=== PATIENT | male | born 1945 | race Caucasian/White ===

== ENCOUNTER → 2016-06-27 | Outpatient (CLI) | payer MEDICARE, BC ==
[~2016-06-27] MED LIST: /WARF25TA PO; AMLO5TAB2 PO; ASPI81TA85 PO; ATEN50TA2 PO; ATOR1TAB21 PO; LYRI75CA PO; PERCOCET PO; TYLE325T5 PO; VALS160T PO
--- NOTE | 2016-06-27 15:06 | REP ---
MRI LUMBAR SPINE WITHOUT CONTRAST: HISTORY: Back and right leg pain. Decreased signal intensity on T2-weighted images is present in the lumbar intervertebral discs. The discs are decreased in height. These findings are consistent with disc degeneration. A diffuse disc bulge is present at the L1-2 level. There is minimal compression of the thecal sac. There is hypertrophy of the posterior articulating facets. The L1 nerves exit the neural foramina without compression. A diffuse disc bulge is present at the L2-3 level. There is hypertrophy of the ligamenta flava and posterior articulating facets. These findings produce minimal central canal stenosis. There is compression of the right L2 nerve in the neural foramen. The left L2 nerve exits the neural foramen without compression. A diffuse disc bulge is present at the L3-4 level. There is hypertrophy of the ligamenta flava and the posterior articulating facets. These findings produce minimal central canal stenosis. There is compression of the right L3 nerve in the neural foramen. The left L3 nerve exits the neural foramen without compression. A diffuse disc bulge is present at the L4-5 level. There is hypertrophy of the ligamenta flava and posterior articulating facets. A 2 mm synovial cyst is present posterior and medial to the left L4-5 facet. These findings produce severe central canal stenosis. There is compression of the L4 nerves in the neural foramina. A diffuse disc bulge is present at the L5-S1 level. There is no thecal sac compression. There is hypertrophy of the posterior articulating facets. There is compression of the left L5 nerve in the neural foramen. The right L5 nerve exits the neural foramen without compression. The conus medullaris is normal in appearance terminating at the level of the L1-2 intervertebral disc. Normal signal intensity is present in the lumbar vertebral bodies. IMPRESSION: 1. Diffuse disc bulge at the L1-2 level with minimal thecal sac compression. 2. Minimal central canal stenosis at the L2-3 and L3-4 levels secondary to disc bulge, ligamentous and facet hypertrophy. There is compression of the right L2 and L3 nerves in the neural foramina. 3. Severe central canal stenosis at the L4-5 level secondary to disc bulge, ligamentous and facet hypertrophy and a left synovial cyst. There is compression of the L4 nerves in the neural foramina. 4. Diffuse disc bulge at the L5-S1 level without thecal sac compression. There is compression of the left L5 nerve in the neural foramen. Signed by Dipak Reina MD 06/27/2016 03:29 P
== END ==
LOC: M RAD 12:42
PROVIDERS: ATTEND Orthopaedic Surgery
DX: M47.896 Other spondylosis, lumbar region (principal)

== ENCOUNTER 2016-12-24 06:26 | Outpatient (CLI) | payer MEDICARE, BC ==
[~2016-12-24] VITALS: Ht 177.8 cm; Wt 117.9 kg
[~2016-12-24 06:26] MED LIST changes: +INDA125TA PO; +VALS1TAB48 PO; +ZYRT10TA2 PO
[2016-12-24] MEDS ORDERED: NS 1,000 ML IV SCH (07:00)
[2016-12-24] MEDS ORDERED: LIDOCAINE 2% INJ 100 MG/5 ML SDV (FOR ANES.) As Ordered ONE (07:56)
[2016-12-24] MEDS ORDERED: PROPOFOL 200 MG/20 ML VIAL As Ordered ONE (07:56)
--- NOTE | 2016-12-24 08:07 | ROOR ---
Patient Name: Pancho Lindo Procedure Date: 12/24/2016 7:38 AM Date of : 1945 Age: 71 Room: [facility] Gender: Male Note Status: Finalized Procedure: Total Colonoscopy to Cecum Indications: Screening for colorectal malignant neoplasm Providers: Jose Juarez MD Referring MD: GABRIEL UMANA JR, MD Requesting Provider: Medicines: Monitored Anesthesia Care Complications: No immediate complications. Procedure: Pre-Anesthesia Assessment: - The heart rate, respiratory rate, oxygen saturations, blood pressure, adequacy of pulmonary ventilation, and response to care were monitored throughout the procedure. The Colonoscope was introduced through the anus and advanced to the cecum, identified by appendiceal orifice and ileocecal valve. The colonoscopy was performed without difficulty. The patient tolerated the procedure well. The quality of the bowel preparation was excellent. Findings: The perianal and digital rectal examinations were normal. Non-bleeding internal hemorrhoids were found during retroflexion. The hemorrhoids were small and Grade I (internal hemorrhoids that do not prolapse). No other significant abnormalities were identified in a careful examination of the remainder of the colon. The exam was otherwise without abnormality on direct and retroflexion views. Scattered small-mouthed diverticula were found in the recto-sigmoid colon and sigmoid colon. Impression: - Non-bleeding internal hemorrhoids. - The examination was otherwise normal on direct and retroflexion views. - Diverticulosis in the recto-sigmoid colon and in the sigmoid colon. - No specimens collected. - The exam was otherwise normal to the cecum. Recommendation: - Patient has a contact number available for emergencies. The signs and symptoms of potential delayed complications were discussed with the patient. Return to normal activities tomorrow. Written discharge instructions were provided to the patient. - High fiber diet. - Discharge patient to home. - Continue present medications. - Repeat colonoscopy for symptoms only. - Return to referring physician. - The findings and recommendations were discussed with the patient's family. Jose Juarez MD Jose Juarez MD 12/24/2016 8:07:19 AM This report has been signed electronically. Number of Addenda: 0 Note Initiated On: 12/24/2016 7:38 AM Estimated Blood Loss: Estimated blood loss: none.
[2016-12-24 08:23] VITALS: BP 135/65
== END 2016-12-24 08:28 ==
LOC: M OPP 06:26
PROVIDERS: ATTEND Internal Medicine Gastroenterology
DX: Z12.11 Encounter for screening for malignant neoplasm of colon (principal); K64.8 Other hemorrhoids; K57.30 Diverticulosis of large intestine without perforation or abscess without bleeding; I10 Essential (primary) hypertension; E78.00 Pure hypercholesterolemia, unspecified; Z79.899 Other long term (current) drug therapy; Z79.82 Long term (current) use of aspirin; Z87.891 Personal history of nicotine dependence

== ENCOUNTER 2018-01-01 20:31 | Emergency (ER) | payer MEDICARE, BC ==
[2018-01-01 20:56] LABS: KETONE, URINE AUTO RFX NEGATIVE (NEGATIVE); LEUKOCYTE ESTERASE UR AUTO RFX NEGATIVE (NEGATIVE); NITRITE, URINE AUTO RFX NEGATIVE (NEGATIVE); RBC, URINE AUTO RFX 2 /HPF (0-3); SPECIFIC GRAVITY UR AUTO RFX 1.002 (1.002-1.035); SQUAM EPITHELIAL CELL UR AURFX 0 /HPF (0-6); WBC, URINE AUTO RFX 0 /HPF (0-3)
[2018-01-01] MEDS: MORPHINE 4 MG/ML 1ML VIAL/SYRINGE (J2270) IV (21:57)
[2018-01-01 21:59] LABS: BASO # 0.1 10^3/uL (0.0-0.2); BASO % 0.4 % (0.0-1.0); EOS # 0.1 10^3/uL (0.0-0.50); EOS % 0.4 % (0.0-3.0); HEMATOCRIT 45.4 % (42.0-52.0); HEMOGLOBIN 15.8 g/dl (13.5-17.5); IMMATURE GRANULOCYTE % 0.7 % (0-3.0); LYMPH # 1.1 10^3/uL (1.5-4.5); LYMPH % 9.2 % (24.0-44.0); MEAN CORPUSCULAR HEMOGLOBIN 30.9 pg (27.0-33.0); MEAN CORPUSCULAR HGB CONC 34.8 g/dl (32.0-36.5); MEAN CORPUSCULAR VOLUME 88.8 fl (80.0-96.0); MONO # 0.7 10^3/uL (0.0-0.8); MONO % 6.3 % (0.0-5.0); NEUTROPHILS # 9.7 10^3/uL (1.8-7.7); PLATELET COUNT, AUTOMATED 234 10^3/uL (150-450); RED BLOOD COUNT 5.11 10^6/uL (4.30-6.10); RED CELL DISTRIBUTION WIDTH 12.7 % (11.5-14.5); WHITE BLOOD COUNT 11.7 10^3/uL (4.0-10.0)
[2018-01-01 22:21] LABS: ALBUMIN 3.8 GM/DL (3.2-5.2); ALBUMIN/GLOBULIN RATIO 1.09 (1.00-1.93); ALKALINE PHOSPHATASE 113 U/L (45-117); ALT/SGPT 27 U/L (12-78); ANION GAP 10 MEQ/L (8-16); AST/SGOT 19 U/L (7-37); BILIRUBIN,TOTAL 0.4 MG/DL (0.2-1.0); BLOOD UREA NITROGEN 9 MG/DL (7-18); CALCIUM LEVEL 8.2 MG/DL (8.8-10.2); CARBON DIOXIDE LEVEL 25 MEQ/L (21-32); CHLORIDE LEVEL 106 MEQ/L (98-107); CREATININE FOR GFR 0.86 MG/DL (0.70-1.30); GLOMERULAR FILTRATION RATE > 60.0 (>42); GLUCOSE, FASTING 136 MG/DL (70-100); LIPASE 80 U/L (73-393); POTASSIUM SERUM 3.4 MEQ/L (3.5-5.1); SODIUM LEVEL 141 MEQ/L (136-145); TOTAL PROTEIN 7.3 GM/DL (6.4-8.2)
[2018-01-01] MEDS ORDERED: ISOVUE-370 76% 100ML VIAL (Q9967) As Ordered (23:07)
[2018-01-01] MEDS: LORazepam 2 MG/ML VIAL (J2060) IV (23:08)
[2018-01-02] MEDS: TAMSULOSIN 0.4 MG CAP PO (00:34)
[2018-01-02] MEDS: NORCO 5/325MG TABLET (BULK FOR ED) PO (00:34)
== END 2018-01-02 00:47 | disposition home or self-care (01) ==
LOC: M ED 01-02 00:47
DX: N32.0 Bladder-neck obstruction (principal); N40.0 Benign prostatic hyperplasia without lower urinary tract symptoms; I10 Essential (primary) hypertension; E78.5 Hyperlipidemia, unspecified; Z87.891 Personal history of nicotine dependence
CPT/HCPCS: J2270

== ENCOUNTER → 2018-01-13 | Outpatient (CLI) | payer MEDICARE, BC | LOC: M RAD 08:06 | DX: R93.5 Abnormal findings on diagnostic imaging of other abdominal regions, including retroperitoneum (principal); D73.89 Other diseases of spleen | CPT/HCPCS: 76705 ==

== ENCOUNTER → 2018-01-27 | Outpatient (CLI) | payer MEDICARE, BC | LOC: M SMT 09:24 | DX: R33.9 Retention of urine, unspecified (principal) | CPT/HCPCS: 76857 ==

== ENCOUNTER → 2018-02-15 | Outpatient (CLI) | payer MEDICARE, BC ==
[2018-02-15 13:44] LABS: HEMATOCRIT 42.6 % (42.0-52.0); HEMOGLOBIN 14.3 g/dl (13.5-17.5); MEAN CORPUSCULAR HGB CONC 33.6 g/dl (32.0-36.5); MEAN CORPUSCULAR VOLUME 89.5 fl (80.0-96.0); PLATELET COUNT, AUTOMATED 210 10^3/uL (150-450); RED BLOOD COUNT 4.76 10^6/uL (4.30-6.10); RED CELL DISTRIBUTION WIDTH 12.7 % (11.5-14.5); WHITE BLOOD COUNT 6.4 10^3/uL (4.0-10.0)
[2018-02-15 13:55] LABS: INR 1.01; PROTHROMBIN TIME 13.4 SECONDS (12.1-14.4)
[2018-02-15 13:56] LABS: PARTIAL THROMBOPLASTIN TIME 29.8 SECONDS (25.4-37.6)
[2018-02-15 13:57] LABS: ANION GAP 8 MEQ/L (8-16); BLOOD UREA NITROGEN 15 MG/DL (7-18); CALCIUM LEVEL 8.8 MG/DL (8.8-10.2); CARBON DIOXIDE LEVEL 27 MEQ/L (21-32); CHLORIDE LEVEL 105 MEQ/L (98-107); CREATININE FOR GFR 0.93 MG/DL (0.70-1.30); GLOMERULAR FILTRATION RATE > 60.0 (>42); GLUCOSE, FASTING 130 MG/DL (70-100); POTASSIUM SERUM 3.9 MEQ/L (3.5-5.1); SODIUM LEVEL 140 MEQ/L (136-145)
== END ==
LOC: M SMT 10:58
DX: N40.1 Benign prostatic hyperplasia with lower urinary tract symptoms (principal); R33.8 Other retention of urine
CPT/HCPCS: 80048

== ENCOUNTER 2018-03-02 05:50 | Inpatient (IN) | payer MEDICARE, BC ==
[2018-03-02] MEDS ORDERED: LR 1,000 ML IV (06:15)
[2018-03-02] MEDS ORDERED: METHYLENE BLUE 0.5% (5MG/ML) 10 ML AMP (PROVAYBLUE)(Q9968 PER 1MG) As Ordered (07:06)
[2018-03-02] MEDS ORDERED: ROCURONIUM BROMIDE 50 MG/5 ML VIAL As Ordered ×3 (07:21→10:54)
[2018-03-02] MEDS ORDERED: fentaNYL 250 MCG/5 ML INJECTION (J3010) As Ordered (07:21)
[2018-03-02] MEDS ORDERED: PROPOFOL 200 MG/20 ML VIAL As Ordered (07:21)
[2018-03-02] MEDS ORDERED: MIDAZOLAM INJ 2 MG/2 ML VIAL (J2250) As Ordered (07:21)
[2018-03-02] MEDS ORDERED: LIDOCAINE 2% INJ 100 MG/5 ML SDV (FOR ANES.) As Ordered (07:21)
[2018-03-02] MEDS ORDERED: dexameTHASONE 4 MG/ML 1ML VIAL (J1100) As Ordered (08:08)
[2018-03-02] MEDS ORDERED: ePHEDrine SULFATE 25 MG/5 ML(5MG/ML) SYRINGE As Ordered (08:13)
[2018-03-02] MEDS ORDERED: PHENYLephrine HCL 500 MCG/5 ML (100MCG/ML) SYRINGE (J2370) As Ordered (08:15)
[2018-03-02] MEDS ORDERED: HYDROmorphone HCL 2 MG/ML 1ML VIAL (J1170) As Ordered (09:21)
[2018-03-02] MEDS ORDERED: ONDANSETRON 4MG/2ML VIAL (J2405) As Ordered (10:19)
[2018-03-02] MEDS ORDERED: METOCLOPRAMIDE INJ 10MG/2ML VIAL (J2765) As Ordered (10:19)
[2018-03-02] MEDS ORDERED: NEOSTIGMINE 10 MG/10 ML VIAL (J2710) As Ordered ×2 (10:25→10:26)
[2018-03-02] MEDS ORDERED: GLYCOPYRROLATE INJ 0.2 MG/ML 2 ML VIAL As Ordered ×2 (10:25)
[2018-03-02] MEDS ORDERED: LABETALOL HCL 100 MG/20 ML VIAL As Ordered ×2 (11:48→12:14)
[2018-03-02] MEDS: LABETALOL HCL 100 MG/20 ML VIAL IV ×11 (12:15→14:40)
[2018-03-02] MEDS ORDERED: ONDANSETRON 4MG/2ML VIAL (J2405) IV ×3 (12:30→14:15)
[2018-03-02] MEDS ORDERED: PERCOCET 5MG/325MG TAB PO ×2 (12:30→14:15)
[2018-03-02] MEDS ORDERED: HYDROMORPHONE HCL 0.5 MG/ 0.5 ML SYRINGE (J1170 PER 1) IV ×2 (12:30→14:15)
[2018-03-02] MEDS: LR 1,000 ML IV ×2 (12:30→14:15)
[2018-03-02] MEDS ORDERED: METOCLOPRAMIDE INJ 10MG/2ML VIAL (J2765) IV ×2 (12:30→14:15)
[2018-03-02] MEDS ORDERED: fentaNYL 100 MCG/2 ML INJECTION (J3010) IV ×2 (12:30→14:15)
[2018-03-02] MEDS ORDERED: MORPHINE 4 MG/ML 1ML VIAL/SYRINGE (J2270) IV (12:45)
[2018-03-02 12:53] LABS: MEAN CORPUSCULAR HEMOGLOBIN 29.8 pg (27.0-33.0); MEAN CORPUSCULAR HGB CONC 33.3 g/dl (32.0-36.5); MEAN CORPUSCULAR VOLUME 89.4 fl (80.0-96.0); PLATELET COUNT, AUTOMATED 212 10^3/uL (150-450); RED CELL DISTRIBUTION WIDTH 12.5 % (11.5-14.5); WHITE BLOOD COUNT 12.9 10^3/uL (4.0-10.0)
[2018-03-02 13:38] LABS: GLUCOSE, FASTING 176 MG/DL (70-100)
[2018-03-02 13:39] LABS: BLOOD UREA NITROGEN 15 MG/DL (7-18); CARBON DIOXIDE LEVEL 28 MEQ/L (21-32); CHLORIDE LEVEL 106 MEQ/L (98-107); CREATININE FOR GFR 1.11 MG/DL (0.70-1.30); GLOMERULAR FILTRATION RATE > 60.0 (>42); POTASSIUM SERUM 4.3 MEQ/L (3.5-5.1); SODIUM LEVEL 140 MEQ/L (136-145)
[2018-03-02 13:40] LABS: ANION GAP 6 MEQ/L (8-16); CALCIUM LEVEL 8.6 MG/DL (8.8-10.2)
[2018-03-02] MEDS: KCL 20MEQ IN D5/0.45NS 1000ML 1,000 ML IV (15:13)
[2018-03-02] MEDS: LevoFLOXacin IV 500 MG in APPROPRIATE DILUENT 1 EA IV (15:13)
[2018-03-02] MEDS: ACETAMINOPHEN 650MG ER TAB (TYLENOL ARTHRITIS) PO ×2 (15:13→20:58)
[2018-03-02] MEDS: PANTOPRAZOLE 40MG INJ (PROTONIX) (C9113) IV (17:30)
[2018-03-02] MEDS ORDERED: LABETALOL HCL 100 MG/20 ML VIAL IV (17:30)
[2018-03-03] MEDS: KCL 20MEQ IN D5/0.45NS 1000ML 1,000 ML IV ×2 (00:32→08:41)
[2018-03-03] MEDS: oxyCODONE 5MG TAB PO ×3 (04:14→18:17)
[2018-03-03] MEDS: ACETAMINOPHEN 650MG ER TAB (TYLENOL ARTHRITIS) PO ×3 (05:29→22:28)
[2018-03-03 06:52] LABS: HEMATOCRIT 36.3 % (42.0-52.0); HEMOGLOBIN 12.2 g/dl (13.5-17.5); MEAN CORPUSCULAR HEMOGLOBIN 30.3 pg (27.0-33.0); MEAN CORPUSCULAR HGB CONC 33.6 g/dl (32.0-36.5); MEAN CORPUSCULAR VOLUME 90.1 fl (80.0-96.0); PLATELET COUNT, AUTOMATED 194 10^3/uL (150-450); RED BLOOD COUNT 4.03 10^6/uL (4.30-6.10); RED CELL DISTRIBUTION WIDTH 12.8 % (11.5-14.5); WHITE BLOOD COUNT 11.2 10^3/uL (4.0-10.0)
[2018-03-03 07:17] LABS: ANION GAP 5 MEQ/L (8-16); BLOOD UREA NITROGEN 10 MG/DL (7-18); CALCIUM LEVEL 8.4 MG/DL (8.8-10.2); CARBON DIOXIDE LEVEL 31 MEQ/L (21-32); CHLORIDE LEVEL 105 MEQ/L (98-107); CREATININE FOR GFR 0.93 MG/DL (0.70-1.30); GLOMERULAR FILTRATION RATE > 60.0 (>42); GLUCOSE, FASTING 133 MG/DL (70-100); POTASSIUM SERUM 4.1 MEQ/L (3.5-5.1); SODIUM LEVEL 141 MEQ/L (136-145)
[2018-03-03] MEDS: amLODIPine 5 MG TAB PO (08:40)
[2018-03-03] MEDS: ATORVASTATIN 20 MG TAB PO (08:40)
[2018-03-03] MEDS: ATENOLOL 25 MG TAB PO (08:40)
[2018-03-03] MEDS: LevoFLOXacin IV 500 MG in APPROPRIATE DILUENT 1 EA IV (16:00)
[2018-03-03] MEDS: PANTOPRAZOLE 40MG INJ (PROTONIX) (C9113) IV (18:16)
[2018-03-04] MEDS: ACETAMINOPHEN 650MG ER TAB (TYLENOL ARTHRITIS) PO ×3 (06:24→21:14)
[2018-03-04 06:59] LABS: CREATININE BF 0.8 MG/DL (NOT ESTABLISHED); SOURCE, BODY FLUID CREATININE OTHER
[2018-03-04] MEDS: ATORVASTATIN 20 MG TAB PO (10:12)
[2018-03-04] MEDS: amLODIPine 5 MG TAB PO (10:16)
[2018-03-04] MEDS: ATENOLOL 25 MG TAB PO (10:16)
[2018-03-04] MEDS: LevoFLOXacin IV 500 MG in APPROPRIATE DILUENT 1 EA IV (16:36)
[2018-03-04] MEDS: PANTOPRAZOLE 40MG INJ (PROTONIX) (C9113) IV (18:45)
[2018-03-05] MEDS: ACETAMINOPHEN 650MG ER TAB (TYLENOL ARTHRITIS) PO (05:20)
[2018-03-05] MEDS: ATORVASTATIN 20 MG TAB PO (09:11)
[2018-03-05] MEDS: ATENOLOL 25 MG TAB PO (09:11)
[2018-03-05] MEDS: amLODIPine 5 MG TAB PO (09:11)
== END 2018-03-05 14:10 | disposition home or self-care (01) | DRG 708 ==
LOC: M OR 05:50 → M MS5PR 13:30
PROC: 0VT04ZZ Resection of Prostate, Percutaneous Endoscopic Approach (ICD-10-PCS; principal; 2018-03-02 07:30)
PROC: 8E0W4CZ Robotic Assisted Procedure of Trunk Region, Percutaneous Endoscopic Approach (ICD-10-PCS; 2018-03-02 07:30)
DX: N40.1 Benign prostatic hyperplasia with lower urinary tract symptoms (principal); N32.0 Bladder-neck obstruction; R33.9 Retention of urine, unspecified; I10 Essential (primary) hypertension; E78.5 Hyperlipidemia, unspecified; Z96.651 Presence of right artificial knee joint; Z79.899 Other long term (current) drug therapy

== ENCOUNTER → 2018-03-18 | Outpatient (REF) | payer MEDICARE, BC | LOC: M SMT 13:46 | DX: N40.1 Benign prostatic hyperplasia with lower urinary tract symptoms (principal) | CPT/HCPCS: 87086 ==

== ENCOUNTER → 2018-03-23 | Outpatient (CLI) | payer MEDICARE, BC ==
[~2018-03-23] MED LIST changes: -/WARF25TA PO; -AMLO5TAB2 PO; -ASPI81TA85 PO; -ATEN50TA2 PO; -ATOR1TAB21 PO; -INDA125TA PO; -LYRI75CA PO; -PERCOCET PO; +PROHANCE 279.3MG/ML 15ML VIAL (A9576) As Ordered; +PROHANCE 279.3MG/ML 5ML VIAL (A9576) As Ordered; -TYLE325T5 PO; -VALS160T PO; -VALS1TAB48 PO; -ZYRT10TA2 PO
== END ==
LOC: M RAD 10:56
DX: D73.9 Disease of spleen, unspecified (principal); Z53.9 Procedure and treatment not carried out, unspecified reason

== ENCOUNTER → 2018-04-23 | Outpatient (CLI) | payer MEDICARE, BC ==
[~2018-04-23] MED LIST changes: +/WARF25TA PO; +AMLO5TAB2 PO; +AMLO5TAB4 PO; +ASPI81TA85 PO; +ATEN50TA2 PO; +ATOR1TAB21 PO; +CIPR500T3 PO; +FEXO180T58 PO; +FINA5TAB2 PO; +FLOM0.4C39 PO; +INDA125TA PO; +LOSA-4 PO; +LYRI75CA PO; +NORCOTAB PO; +PERCOCET PO; -PROHANCE 279.3MG/ML 15ML VIAL (A9576) As Ordered; -PROHANCE 279.3MG/ML 5ML VIAL (A9576) As Ordered; +TYLE325T5 PO; +TYLE650T35 PO; +VALS160T PO; +VALS1TAB48 PO; +ZYRT10CA5 PO
--- NOTE | 2018-04-23 18:18 | REP ---
MRI ABDOMEN WITH AND WITHOUT CONTRAST: Multiple sequences were obtained in the axial and coronal planes prior to and following the intravenous administration of 22 mL ProHance. Correlation made with prior CT 01/01/2018. Once again the anterior spleen demonstrates a focal round mass. Diameter is about 5.4 cm, unchanged since the prior CT exam. The mass is slightly heterogenous and hyperintense on T2 weighted images. It enhances to a similar degree of the spleen with mild heterogeneity. The spleen itself is normal in size. The liver demonstrates no mass. The adrenals, pancreas, and visualized kidneys are unremarkable. I see no adenopathy or free fluid in the visualized abdomen. IMPRESSION: No change in bulging anterior splenic mass compared to the prior CT of 01/01/2018. 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 Recommend followup exam in 6-12 months. Electronically Signed by Luc Alejandre MD 04/27/2018 02:46 P
== END ==
LOC: M PLARAD 12:54
PROVIDERS: ATTEND Internal Medicine
DX: R16.1 Splenomegaly, not elsewhere classified (principal)

== ENCOUNTER 2018-07-01 07:25 | Emergency (ER) | payer MEDICARE, BC ==
[~2018-07-01] VITALS: Ht 180.3 cm; Wt 113.6 kg
[~2018-07-01 07:25] MED LIST changes: -AMLO5TAB4 PO; +AMLO5TAB6 PO; -LOSA-4 PO; +LOSA100T50 PO
--- NOTE | 2018-07-01 08:28 | REP ---
CT Head without contrast HISTORY: Posterior trauma COMPARISON: None Areas of decreased attenuation are present in the periventricular white matter. This represents small-vessel ischemic disease. There is no intraparenchymal hemorrhage, acute infarct, mass or midline shift. The ventricular system and cortical sulci as well as subarachnoid space in the posterior fossa are dilated consistent with minimal volume loss. There is no extra cerebral collection. There is no fracture. Mucosal thickening is present in the right maxillary sinus. Soft tissue swelling with a laceration are present overlying the right parietal bone. IMPRESSION: 1. Small vessel ischemic disease. 2. Minimal volume loss. Electronically Signed by Dipak Reina MD 07/01/2018 08:19 A
--- NOTE | 2018-07-01 08:33 | REP ---
CT cervical spine without contrast HISTORY: Posterior trauma COMPARISON: None There is no acute fracture or subluxation. There is fusion of the C5 and C6 vertebral bodies. A disc bulge is present at the C3-4 level. Disc bulges with associated osteophyte formation are present at the C4-5 and C6-7 levels. Posterior osteophytes are present at the C5-6 level. There is minimal narrowing of the spinal canal. Uncinate process and/or facet hypertrophy are present at the C2-3 through C7-T1 levels. These findings produce minimal to moderate narrowing of the neural foramina. The C3-4, C4-5 and C6-7 intervertebral discs are decreased in height consistent with disc degeneration. IMPRESSION: 1. There is no acute fracture or subluxation. 2. There is cervical spondylosis at the C2-3 through C7-T1 levels. Electronically Signed by Dipak Reina MD 07/01/2018 08:25 A
[2018-07-01] MEDS ORDERED: ADACEL/BOOSTRIX VACCINE (DIPHTH/PERTUSS/ACELL/TETANUS)0.5ML SYR (90715) IM ONE (09:00)
[2018-07-01] MEDS ORDERED: LIDOCAINE 1% MDV 20ML VIAL SC ONE (09:00)
[2018-07-01 10:00] VITALS: BP 179/89
[2018-07-01] MEDS ORDERED: KEFL500C17 PO (10:07)
== END 2018-07-01 10:00 | disposition home or self-care (01) ==
LOC: M ED 07:25
DX: S01.01XA Laceration without foreign body of scalp, initial encounter (principal); S13.9XXA Sprain of joints and ligaments of unspecified parts of neck, initial encounter; W00.9XXA Unspecified fall due to ice and snow, initial encounter; Y92.099 Unspecified place in other non-institutional residence as the place of occurrence of the external cause; Y93.9 Activity, unspecified; Y99.9 Unspecified external cause status; E78.00 Pure hypercholesterolemia, unspecified; I10 Essential (primary) hypertension; N40.0 Benign prostatic hyperplasia without lower urinary tract symptoms; Z87.891 Personal history of nicotine dependence; M47.812 Spondylosis without myelopathy or radiculopathy, cervical region; M47.813 Spondylosis without myelopathy or radiculopathy, cervicothoracic region; Z79.899 Other long term (current) drug therapy

== ENCOUNTER 2018-08-15 16:03 | Emergency (ER) | payer MEDICARE, BC ==
[~2018-08-15] VITALS: Ht 177.8 cm; Wt 118.2 kg
[~2018-08-15 16:03] MED LIST changes: -/WARF25TA PO; +COUM1TAB18 PO; +HYDR-3715 PO; +KEFL500C17 PO; -NORCOTAB PO; +OXYC1TAB23 PO; -PERCOCET PO; -VALS1TAB48 PO; +VALS1TAB68 PO
[2018-08-15] MEDS ORDERED: ONDANSETRON 4MG/2ML VIAL (J2405) IV ONE (16:30)
[2018-08-15] MEDS ORDERED: MORPHINE 4 MG/ML 1ML VIAL/SYRINGE (J2270) IV ONE ×2 (16:30→17:45)
[2018-08-15] MEDS ORDERED: NS 1,000 ML IV ONE (16:30)
[2018-08-15 16:39] LABS: BASO % 0.3 % (0.0-1.0); HEMATOCRIT 42.8 % (42.0-52.0); HEMOGLOBIN 14.4 g/dl (13.5-17.5); LYMPH # 0.9 10^3/uL (1.5-4.5); LYMPH % 9.2 % (24.0-44.0); MEAN CORPUSCULAR HEMOGLOBIN 29.6 pg (27.0-33.0); MEAN CORPUSCULAR HGB CONC 33.6 g/dl (32.0-36.5); MEAN CORPUSCULAR VOLUME 87.9 fl (80.0-96.0); MONO # 0.6 10^3/uL (0.0-0.8); MONO % 5.4 % (0.0-5.0); NEUTROPHILS # 8.7 10^3/uL (1.8-7.7); NEUTROPHILS % 84.6 % (36.0-66.0); PLATELET COUNT, AUTOMATED 214 10^3/uL (150-450); RED BLOOD COUNT 4.87 10^6/uL (4.30-6.10); WHITE BLOOD COUNT 10.3 10^3/uL (4.0-10.0)
[2018-08-15 17:11] LABS: ALBUMIN 4.1 GM/DL (3.2-5.2); ALT/SGPT 24 U/L (12-78); BILIRUBIN,DIRECT 0.2 MG/DL (0.0-0.2); BILIRUBIN,TOTAL 1.1 MG/DL (0.2-1.0); BLOOD UREA NITROGEN 13 MG/DL (7-18); CALCIUM LEVEL 8.7 MG/DL (8.8-10.2); CARBON DIOXIDE LEVEL 27 MEQ/L (21-32); CHLORIDE LEVEL 100 MEQ/L (98-107); CREATININE FOR GFR 0.95 MG/DL (0.70-1.30); GLOMERULAR FILTRATION RATE > 60.0 (>42); GLUCOSE, FASTING 142 MG/DL (70-100); LIPASE 68 U/L (73-393); POTASSIUM SERUM 3.9 MEQ/L (3.5-5.1); SODIUM LEVEL 136 MEQ/L (136-145); TOTAL PROTEIN 7.7 GM/DL (6.4-8.2)
[2018-08-15] MEDS ORDERED: ISOVUE-370 76% 100ML VIAL (Q9967) As Ordered ONE (17:39)
[2018-08-15 18:10] VITALS: BP 184/90
--- NOTE | 2018-08-15 18:22 | REPVR ---
EXAM: CT Abdomen and Pelvis With Contrast EXAM DATE/TIME: 08/15/2018 5:44 PM CLINICAL HISTORY: 73 years old, male; Pain; Abdominal pain; Generalized; Additional info: Lower abdominal pain; R/O diverticulitis TECHNIQUE: Imaging protocol: Axial computed tomography images of the abdomen and pelvis with intravenous contrast. Coronal and sagittal reformatted images were created and reviewed. Radiation optimization: All CT scans at this facility use at least one of these dose optimization techniques: automated exposure control; mA and/or kV adjustment per patient size (includes targeted exams where dose is matched to clinical indication); or iterative reconstruction. Contrast material: ISOVUE 370 Contrast volume: 100 ml Contrast route: IV COMPARISON: CT ABD/PEL W/IV CONTRAST ONLY 01/01/2018 11:19 PM FINDINGS: Lower thorax: None calcified pleural based nodule left lower lobe measures 5 millimeters. A few scattered 1-2 millimeter subpleural nodules demonstrated in both lower lobes. These are likely postinflammatory. No followup required. ABDOMEN: Liver: There is a diffuse decrease in hepatic parenchymal density, consistent with fatty infiltration. Gallbladder and bile ducts: Normal. No calcified stones. No ductal dilation. Pancreas: Normal. No ductal dilation. Spleen: Stable contour bulge in the anterior spleen measures 4.5 x 5.3 x 5.4 centimeters. This demonstrates enhancement similar to adjacent normal spleen. Images from MRI performed on 04/23/2018 part not available for review at this time. Adrenals: Normal. No mass. Kidneys and ureters: Normal. No hydronephrosis. Stomach and bowel: Normal. No obstruction. No mucosal thickening. Appendix: No evidence of appendicitis. PELVIS: Bladder: Mild diffuse thickening of the bladder wall likely related to changes of chronic bladder obstruction. Reproductive: The prostate gland demonstrates moderate hyperplasia. Apparent TURP defect demonstrated ABDOMEN and PELVIS: Intraperitoneal space: Normal. No free air. No significant fluid collection. Bones/joints: The spine demonstrates moderate degenerative changes. Soft tissues: Unremarkable. Vasculature: The aorta demonstrates mild atherosclerotic calcification. Lymph nodes: Normal. No enlarged lymph nodes. IMPRESSION: 1. There is a diffuse decrease in hepatic parenchymal density, consistent with fatty infiltration. 2. Stable contour bulge in the anterior spleen measures 4.5 x 5.3 x 5.4 centimeters. This demonstrates enhancement similar to adjacent normal spleen. Images from MRI performed on 04/23/2018 part not available for review at this time. 3. Moderate prostatic hyperplasia. Electronically signed by: Cristian Bray On 08/15/2018 18:21:26 PM
[2018-08-15] MEDS ORDERED: HYDR-3715 PO (18:52)
== END 2018-08-15 19:09 | disposition home or self-care (01) ==
LOC: M ED 16:03
DX: R10.9 Unspecified abdominal pain (principal); R11.0 Nausea; K76.0 Fatty (change of) liver, not elsewhere classified; N40.0 Benign prostatic hyperplasia without lower urinary tract symptoms; I10 Essential (primary) hypertension; Z79.899 Other long term (current) drug therapy
CPT/HCPCS: 74177; 80048; 80076; 81001; 83605; 83690; 85025; 96361; 96374; 96375; 96376; 99284; J2270; J2405; Q9967

== ENCOUNTER 2018-12-02 13:11 | Emergency (ER) | payer MEDICARE, BC ==
[~2018-12-02] VITALS: Ht 180.3 cm; Wt 118.2 kg
[2018-12-02] MEDS ORDERED: ALEV1TAB PO (13:21)
--- NOTE | 2018-12-02 15:04 | REP ---
Lumbar spine five views: Comparison is a lumbar spine MRI dated 06/27/2016. There is lumbar scoliosis convex right. There is degenerative disc disease at every lumbar level. Vertebral body heights and alignment are normal. There is no spondylolysis or spondylolisthesis. The facet articulations demonstrate mild osteoarthritis. The pedicles and sacroiliac articulations are unremarkable. Impression: Scoliosis. Multilevel degenerative disc disease. Facet osteoarthritis. Electronically Signed by Luc Adame MD 12/02/2018 02:55 P
--- NOTE | 2018-12-02 15:06 | REP ---
Right ribs four views: There is no rib fracture. 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 PA chest: Comparison is 02/15/2018. There is no pneumothorax, hemothorax or pulmonary contusion. Lung youssef are clear. Cardiac size is normal. The coco, mediastinum, and skeletal structures are unchanged. Impression: Negative PA chest. No interval change. Electronically Signed by Luc Adame MD 12/02/2018 02:57 P
--- NOTE | 2018-12-02 15:07 | REP ---
Thoracic spine four views: Comparison is a PA and lateral chest dated 02/15/2018. Vertebral body heights and alignment are normal. There are no compression deformities. There is degenerative disc disease throughout the thoracic spine. There are anterior bridging osteophytes in the mid and lower thoracic spine, similar to the prior study. Mineralization appears normal. Pedicles are unremarkable. Impression: No compression deformity or listhesis. Multilevel degenerative disc disease. Electronically Signed by Luc Adame MD 12/02/2018 02:58 P
[2018-12-02] MEDS ORDERED: IBUP80TA PO (16:26)
[2018-12-02 16:39] VITALS: BP 182/112
== END 2018-12-02 16:44 | disposition home or self-care (01) ==
LOC: M ED 13:11
DX: S29.012A Strain of muscle and tendon of back wall of thorax, initial encounter (principal); S39.012A Strain of muscle, fascia and tendon of lower back, initial encounter; M51.36 Other intervertebral disc degeneration, lumbar region; M51.34 Other intervertebral disc degeneration, thoracic region; M41.9 Scoliosis, unspecified; M47.814 Spondylosis without myelopathy or radiculopathy, thoracic region; W10.8XXA Fall (on) (from) other stairs and steps, initial encounter; Y92.098 Other place in other non-institutional residence as the place of occurrence of the external cause; I10 Essential (primary) hypertension; E78.5 Hyperlipidemia, unspecified; Z79.899 Other long term (current) drug therapy; Z79.1 Long term (current) use of non-steroidal anti-inflammatories (NSAID)

== ENCOUNTER 2018-12-05 14:25 | Emergency (ER) | payer MEDICARE, BC ==
[~2018-12-05] VITALS: Ht 177.8 cm; Wt 118.2 kg
[~2018-12-05 14:25] MED LIST changes: +ALEV1TAB PO; +IBUP80TA PO
[2018-12-05] MEDS ORDERED: ECOT81TA5 PO (14:34)
[2018-12-05 16:22] LABS: BASO # 0.1 10^3/uL (0.0-0.2); BASO % 0.6 % (0.0-1.0); EOS # 0.2 10^3/uL (0.0-0.50); EOS % 2.1 % (0.0-3.0); HEMATOCRIT 46.2 % (42.0-52.0); HEMOGLOBIN 15.6 g/dl (13.5-17.5); LYMPH # 1.1 10^3/uL (1.5-4.5); LYMPH % 14.4 % (24.0-44.0); MEAN CORPUSCULAR HGB CONC 33.8 g/dl (32.0-36.5); MEAN CORPUSCULAR VOLUME 91.8 fl (80.0-96.0); MONO # 0.7 10^3/uL (0.0-0.8); MONO % 9.4 % (0.0-5.0); NEUTROPHILS # 5.7 10^3/uL (1.8-7.7); NEUTROPHILS % 72.9 % (36.0-66.0); PLATELET COUNT, AUTOMATED 208 10^3/uL (150-450); RED BLOOD COUNT 5.03 10^6/uL (4.30-6.10); WHITE BLOOD COUNT 7.8 10^3/uL (4.0-10.0)
[2018-12-05 16:35] LABS: APPEARANCE, URINE CLEAR (CLEAR); BACTERIA, URINE AUTO NEGATIVE (NEGATIVE); BILIRUBIN, URINE AUTO NEGATIVE (NEGATIVE); BLOOD, URINE BLOOD 1+ (NEGATIVE); COLOR, URINE COLORLESS (YELLOW); GLUCOSE, URINE (UA) AUTO NEGATIVE (NEGATIVE); KETONE, URINE AUTO NEGATIVE (NEGATIVE); LEUKOCYTE ESTERASE, URINE AUTO NEGATIVE (NEGATIVE); MUCUS, URINE SMALL (NEGATIVE); NITRITE, URINE AUTO NEGATIVE (NEGATIVE); PROTEIN, URINE AUTO NEGATIVE (NEGATIVE); RBC, URINE AUTO 2 /HPF (0-3); SPECIFIC GRAVITY URINE AUTO 1.002 (1.002-1.035); SQUAMOUS EPITHELIAL CELL UR AU 0 /HPF (0-6); UROBILINOGEN, URINE AUTO 0.2 mg/dL (0.0-2.0); WBC, URINE AUTO 0 /HPF (0-3)
[2018-12-05 16:52] LABS: ALBUMIN 4.2 GM/DL (3.2-5.2); ALT/SGPT 28 U/L (12-78); BILIRUBIN,DIRECT 0.1 MG/DL (0.0-0.2); BILIRUBIN,TOTAL 0.5 MG/DL (0.2-1.0); BLOOD UREA NITROGEN 15 MG/DL (7-18); CALCIUM LEVEL 9.4 MG/DL (8.8-10.2); CARBON DIOXIDE LEVEL 30 MEQ/L (21-32); CHLORIDE LEVEL 105 MEQ/L (98-107); CK-MB VALUE MASS 2.1 NG/ML (<3.6); CPK CREATINE PHOSPHOKINASE 106 U/L (39-308); CREATININE FOR GFR 0.93 MG/DL (0.70-1.30); GLOMERULAR FILTRATION RATE > 60.0 (>42); GLUCOSE, FASTING 103 MG/DL (70-100); MAGNESIUM LEVEL 2.3 MG/DL (1.8-2.4); MB/CK RELATIVE INDEX 1.98 (< OR =4); POTASSIUM SERUM 3.9 MEQ/L (3.5-5.1); SODIUM LEVEL 142 MEQ/L (136-145); TOTAL PROTEIN 7.6 GM/DL (6.4-8.2); TROPONIN I < 0.02 NG/ML (< 0.10)
[2018-12-05 17:42] VITALS: BP 152/87
--- NOTE | 2018-12-05 21:31 | ECGEPIP ---
[facility] - ED Test Date: 2018-12-05 Pat Name: SARA SANDERS Department: Room: - Gender: Male Hand Compositor: SANDEE : 1945 Requested By: Erendira Shah PA-C Order Number: [id number] Reading MD: Neema Deshpande Measurements Intervals [place] Rate: 69 P: 68 NH: 180 QRS: -6 QRSD: 100 T: 18 QT: 388 QTc: 416 Interpretive Statements SINUS RHYTHM NO PRIOR Electronically Signed on 12-05-2018 21:31:30 EDT by Neema Deshpande
--- NOTE | 2018-12-07 16:41 | REP ---
PA and lateral chest: Comparison is 02/15/2018. The lung youssef are clear. The cardiac size is normal. The coco, mediastinum, and skeletal structures are unremarkable. Impression: Negative PA and lateral chest. There is no interval change. Electronically Signed by Luc Adame MD 12/05/2018 03:53 P
== END 2018-12-05 17:44 | disposition home or self-care (01) ==
LOC: M ED 14:25
DX: I10 Essential (primary) hypertension (principal); R60.0 Localized edema; R07.89 Other chest pain; E78.5 Hyperlipidemia, unspecified; M54.9 Dorsalgia, unspecified; Z87.891 Personal history of nicotine dependence; Z79.82 Long term (current) use of aspirin; Z79.899 Other long term (current) drug therapy

== ENCOUNTER → 2019-01-07 | Outpatient (CLI) | payer MEDICARE, BC ==
[~2019-01-07] MED LIST changes: +ECOT81TA5 PO
--- NOTE | 2019-01-18 16:04 | REP ---
Clinical: Splenic mass. Technique: Pre and postcontrast MRI of the abdomen. 20 ml ProHance gadolinium based contrast enhancement administered without complication. Findings: A 5.5 cm round solid mass identified along the anterior margin of the spleen is relatively isointense to splenic tissue with mild heterogeneity and demonstrates very subtle heterogeneous enhancement. 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 Electronically Signed by Qasim Condon MD 01/18/2019 03:56 P
== END ==
LOC: M PLARAD 14:01
PROVIDERS: ATTEND Internal Medicine
DX: R16.1 Splenomegaly, not elsewhere classified (principal)

== ENCOUNTER → 2019-01-07 | Outpatient (CLI) | payer MEDICARE, BC ==
--- NOTE | 2019-01-11 09:13 | REP ---
MRI lumbar spine without contrast: History: Spondylosis without myelopathy. Low back pain. Sudden loss of the ability to walk without assistance. Comparison lumbar spine MRI study June 27, 2016. The prior MRI study showed severe central canal stenosis at L4-5. Comparison radiographs December 02, 2018. Technique: Sagittal and axial T1 and T2-weighted scans are acquired in the usual fashion with and without fat saturation. Sequences include spin echo, turbo spin-echo, and STIR imaging sequences. MRI findings: There is straightening of the normal lumbar lordosis as before. A levoconvex lumbar curvature is again noted. No bony destructive lesion is seen. No fracture or collapse is noted. Normal caliber aorta. Axial and sagittal images taken at the L4-5 level again demonstrate severe central canal stenosis due to developmentally short pedicles, diffuse disc bulging, ligamentum flavum hypertrophy, facet hypertrophy, and a small left-sided synovial cyst. The findings are essentially unchanged morphologically. The AP dimension of the thecal sac in the midline at this level is 6 mm. T2-weighted scans show effacement of the CSF signal. There is disc bulging and facet hypertrophy encroaching on the facets at L4-5 bilaterally also unchanged. The cauda equina nerve roots are somewhat buckled in the thecal sac at the level L4 above the L4-5 disc. At L3-4 there is moderate central canal stenosis due to diffuse disc bulging and ligamentum flavum and facet hypertrophy. AP dimension of the thecal sac in the midline is 8 mm at this level. These findings are unchanged. There is a Schmorl's node along the superior endplate of the L4 vertebral body which is a new finding. At L2-3, there is moderate diffuse disc bulging. Mild central canal stenosis is seen. There is foraminal narrowing on the right at the 2-3 level. Findings are unchanged. At L1-2 there is mild diffuse disc bulging. At the L5-S1 level there is bilateral facet hypertrophy. There is a left foraminal disc bulge contributing along with facet hypertrophy to left neural foraminal narrowing. This is slightly more prominent. Impression: Severe central canal stenosis persists at L4-5 unchanged in appearance. There is a right foraminal disc protrusion at L5-S1 which appears somewhat more prominent and there is a new Schmorl's node at the superior endplate of L4. Electronically Signed by Sae Carpenter MD 01/11/2019 09:43 A
== END ==
LOC: M PLARAD 14:15
PROVIDERS: ATTEND Orthopaedic Surgery
DX: M47.817 Spondylosis without myelopathy or radiculopathy, lumbosacral region (principal); R16.1 Splenomegaly, not elsewhere classified

== ENCOUNTER → 2024-04-04 | Outpatient (REF) | payer MEDICARE, BC ==
[~2024-04-04] MED LIST changes: +ACET650T61 PO; +AMLO1TAB24 PO; -AMLO5TAB6 PO; +ASPI81TA86 PO; +FEXO-117 PO; -FEXO180T58 PO; +INDA1.253 PO; -INDA125TA PO; +LOSA100T46 PO; -LOSA100T50 PO; -TYLE650T35 PO
[2024-04-04 17:23] LABS: INR 1.05; PARTIAL THROMBOPLASTIN TIME 30.2 SECONDS (24.8-34.2)
== END ==
LOC: M LAB REF 16:23
PROVIDERS: ATTEND Internal Medicine
DX: Z01.812 Encounter for preprocedural laboratory examination (principal)

== ENCOUNTER 2024-12-31 20:13 | Emergency (ER) | payer MEDICARE, BC ==
[~2024-12-31] VITALS: Ht 177.8 cm; Wt 108.0 kg
[~2024-12-31 20:13] MED LIST changes: -FEXO-117 PO; +FEXO-193 PO; -FLOM0.4C39 PO; +TAMS-18 PO
[2024-12-31] MEDS ORDERED: HYDR-3490 PO (20:34)
[2024-12-31] MEDS ORDERED: METF500T13 PO (20:35)
[2024-12-31 21:31] LABS: BASO # 0.0 10^3/uL (0.0-0.2); BASO % 0.3 % (0.0-1.0); EOS # 0.0 10^3/uL (0.0-0.5); EOS % 0.3 % (0.0-3.0); LYMPH # 0.5 10^3/uL (1.5-5.0); LYMPH % 3.6 % (24.0-44.0); MONO # 1.4 10^3/uL (0.0-0.8); MONO % 9.3 % (2.0-8.0); NEUTROPHILS # 12.7 10^3/uL (1.5-8.5); NEUTROPHILS % 85.9 % (36.0-66.0); PLATELET COUNT, AUTOMATED 207 10^3/uL (150-450)
[2024-12-31 21:36] LABS: ERYTHROCYTE SEDIMENTATION RATE 15 mm/hr (0-20)
[2024-12-31 21:53] LABS: C REACTIVE PROTEIN QUANTITATIV 0.96 MG/DL (<1.0); CALCIUM LEVEL 9.1 MG/DL (8.3-10.6); CARBON DIOXIDE LEVEL 28.0 MMOL/L (20-31); CHLORIDE LEVEL 100.0 MMOL/L (98-107); CREATININE FOR GFR 0.81 MG/DL (0.70-1.30); GLOMERULAR FILTRATION RATE 89.1 (>35); POTASSIUM SERUM 3.7 MMOL/L (3.5-5.1); SODIUM LEVEL 137.0 MMOL/L (136-145)
[2024-12-31] MEDS: ACETAMINOPHEN 325 MG TAB PO ONE (22:07)
[2024-12-31] MEDS: AMPICILLIN SOD/SULBACTAM SOD 3 GM in DEXTROSE 5% (D5W) MINI-BAG PLU 100 ML IV ONE (22:55)
[2024-12-31] MEDS: TETANUS/DIPHTH/ACEL. PERTUSSIS 0.5 ML SYR IM ONE (22:56)
[2024-12-31] MEDS ORDERED: AUGM500T34 PO (23:27)
[2024-12-31 23:51] VITALS: TEMP 100.1
[2025-01-01] VITALS: BP 155/76; O2SAT 92
== END 2025-01-01 00:04 | disposition home or self-care (01) ==
LOC: M ED 20:13
DX: S61.451A Open bite of right hand, initial encounter (principal); L08.9 Local infection of the skin and subcutaneous tissue, unspecified; W55.01XA Bitten by cat, initial encounter; Y92.009 Unspecified place in unspecified non-institutional (private) residence as the place of occurrence of the external cause; Y93.9 Activity, unspecified; Y99.9 Unspecified external cause status; I10 Essential (primary) hypertension; E78.5 Hyperlipidemia, unspecified; R73.01 Impaired fasting glucose; M19.90 Unspecified osteoarthritis, unspecified site; Z79.82 Long term (current) use of aspirin; Z79.899 Other long term (current) drug therapy
CPT/HCPCS: 80048; 83605; 85025; 85652; 86140; 87040; 90471; 90715; 96365; 99284; J0295

== ENCOUNTER → 2025-01-24 | Outpatient (REF) | payer MEDICARE, BC ==
[~2025-01-24] MED LIST changes: +AUGM500T34 PO; +HYDR-3490 PO; +METF500T13 PO
[2025-01-24 12:25] LABS: INR 0.97
== END ==
LOC: M LAB REF 12:09
PROVIDERS: ATTEND Internal Medicine
DX: Z01.818 Encounter for other preprocedural examination (principal)

== ENCOUNTER → 2025-03-17 | Outpatient (CLI) | payer MEDICARE, BC | LOC: M PLAIMG 12:54 | PROVIDERS: ATTEND Physical Medicine & Rehabilitation | DX: M47.897 Other spondylosis, lumbosacral region (principal); M43.17 Spondylolisthesis, lumbosacral region; M48.07 Spinal stenosis, lumbosacral region; M51.26 Other intervertebral disc displacement, lumbar region; M25.78 Osteophyte, vertebrae; N40.0 Benign prostatic hyperplasia without lower urinary tract symptoms ==